=== PATIENT | male | born 1955 ===

== ENCOUNTER 2019-03-22 09:48 | Day surgery (SDC) | payer OTHER ==
[~2019-03-22 09:48] MED LIST: Buffered Lidocaine 1% SYRIN* 1 ML/SYRINGE INTRADERM ONE
[2019-03-22] MEDS ORDERED: fentaNYL* 50 MCG/ML 2 ML VIAL (100 MCG VIAL) ONE (10:55)
[2019-03-22] MEDS ORDERED: Midazolam* 1 MG/ML 2 ML VIAL (2 MG) ONE (10:55)
[2019-03-22 12:51] VITALS: BP 92/50
[2019-03-22] MEDS ORDERED: Tropicamide 1% OPTH.SOL* BTL ONE (14:22)
[2019-03-22] MEDS ORDERED: Lidocaine 1% MPF ** 5 ML VIAL ONE (14:22)
[2019-03-22] MEDS ORDERED: Neomycin/Polymy/Dex OPHTH.OIN* 3.5 GM ONE (14:22)
[2019-03-22] MEDS ORDERED: Cyclopentolate 1% OPTH.SOL* 2 ML BTL ONE (14:22)
[2019-03-22] MEDS ORDERED: Phenylephrine OPHTH SOL 2.5%* 2 ML ONE (14:22)
[2019-03-22] MEDS ORDERED: Tetracaine 0.5% OPTH.SOL 4 ML* 1 DROP BTL ONE (14:22)
[2019-03-22] MEDS ORDERED: Ketorolac 0.5% OPHTH (NF) 0.5 % 5 ML BTL ONE (14:22)
--- NOTE | 2019-03-22 21:16 | OP ---
DATE OF OPERATION: 03/22/19 - [facility] DATE OF : 53 SURGEON: Asad Gann MD. SOCIAL WORK MANAGER: None. ANESTHESIA: Topical with intravenous sedation. PRE-OP DIAGNOSIS: Cataract, right eye, and glaucoma, right eye. POST-OP DIAGNOSIS: Cataract, right eye, and glaucoma, right eye. OPERATIVE PROCEDURE: Phacoemulsification and cataract extraction with posterior chamber intraocular lens implant and iStent implant, right eye. COMPLICATIONS: None. BLOOD LOSS: None. DESCRIPTION OF PROCEDURE: The patient was brought to the operating room and given intravenous sedation. A drop of tetracaine was placed into his right eye. The patient was prepped and draped in the usual sterile fashion for ophthalmic surgery and attention was directed to the right eye where a speculum was placed. A paracentesis was created at the 11 o'clock position and 0.1 cc of 1% preservative- free lidocaine was injected into the anterior chamber, followed by DisCoVisc. The eye was digitally stabilized while a 2.75-mm keratome was used to create a triplanar clear corneal incision at the 9 o'clock position. A continuous curvilinear capsulorrhexis was created using a cystotome and Utrata forceps. BSS on a cannula was used to hydrodissect the lens from the capsule. Phacoemulsification was performed in a bydouo-lta-onarjdi technique to create 4 fragments, which were removed. Residual cortical material was removed with irrigation and aspiration. The capsular bag was polished. An AU00T0 19.0 diopter lens was inserted into the capsular bag. Supplemental DisCoVisc was used to deepen the anterior chamber and coat the surface of the cornea. The patient's head was rotated away from the surgeon and the microscope was rotated towards the surgeon. A gonioprism was placed on the surface of the eye. An iStent on its planning technician was introduced into the anterior chamber. Under direct visualization, the iStent was placed into the nasal trabecular meshwork. The planning technician and the prism were removed. The head and the microscope were returned to a neutral position. Irrigation and aspiration were performed to remove viscoelastic from the eye. BSS on a cannula was used to hydrate the corneal stroma and seal the wound. At the end of the case, the pupil was round. The lens was centered and stable. The eye pressure appeared normal. The wound was watertight. The iStent was in good position. The speculum was removed and topical Maxitrol ointment was placed on the surface of the eye. The eye was closed, patched, and shielded, and the patient was sent to the recovery room in stable condition with postoperative instructions and followup appointment given. [id number] #: [id number] MTDD
== END 2019-03-22 12:18 | disposition home or self-care (01) ==
LOC: OREAST 09:48
PROVIDERS: ATTEND Ophthalmology
DX: H25.041 Posterior subcapsular polar age-related cataract, right eye (principal); H40.1111 Primary open-angle glaucoma, right eye, mild stage; I10 Essential (primary) hypertension; E78.5 Hyperlipidemia, unspecified; Z87.891 Personal history of nicotine dependence; I71.9 Aortic aneurysm of unspecified site, without rupture
CPT/HCPCS: A9270-GY; C1783; J2250; J3010; V2632